=== PATIENT | female | born 1995 | race Caucasian/White ===

== ENCOUNTER 2017-03-21 11:47 | Emergency (ER) | payer OTHER ==
[2017-03-21 11:58] VITALS: BP 125/66; PULSE 69; RESP 16; TEMP 98.4; O2SAT 97
--- NOTE | 2017-03-21 12:05 | EDPHY ---
HPI/HX/ROS/PE/MDM Narrative: CHIEF COMPLAINT: Cough HPI: The patient is a 21-year-old female with no significant past medical history. She complains of a nonproductive cough that has been present for approximately 2 weeks. She denies fever. She denies hemoptysis. She states that she sometimes coughs so much that she throws up. She denies recent sick contacts. REVIEW OF SYSTEMS: Aside from elements discussed in the HPI, a comprehensive 10-point review of systems was reviewed and is negative. PMH: None significant. SOCIAL HISTORY: Single. Student. Nonsmoker. PHYSICAL EXAM: General:Patient is alert, in no acute distress. ENT:Eyes are normal to inspection. ENT inspection normal. Neck: Normal inspection. Full range of motion. Respiratory:No respiratory distress. Breath sounds normal bilaterally. Cardiovascular: Regular rate and rhythm. Strong peripheral pulses. Normal cap refill. Abdomen:The abdomen is nontender to palpation. There are no peritoneal signs. There are normal bowel sounds. Back: Normal to inspection. No tenderness to palpation. Skin: Normal color. No rash. Warm and dry. Extremities: Normal appearance. Full range of motion. Neuro: Oriented x3. Normal motor function. Normal sensory function. ED Course: Chest x-ray negative for pneumonia. MDM: This is a young healthy female who presents with what sounds like viral bronchitis. I will prescribe her to different cough suppressants. I do not think antibiotics are indicated. There is no evidence for pneumothorax, PE or pneumonia. - Data Points Imaging: I viewed and interpreted images myself General Time Seen by Provider: 03/21/17 11:56 Initial Vital Signs: Initial Vital Signs Temperature (C) 36.9 C 03/21/17 11:49 Heart Rate 69 03/21/17 11:49 Respiratory Rate 16 03/21/17 11:49 Blood Pressure 125/66 H 03/21/17 11:49 O2 Sat (%) 97 03/21/17 11:49 O2 Delivery Mode Room Air Allergies/Adverse Reactions: No Known Allergies Allergy (Verified 03/21/17 11:56) Home Medications: Medication Instructions Recorded Bcp 06/07/14 Departure - Departure Disposition: Home, Routine, Self-Care Clinical Impression: Acute bronchitis Condition: Good Instructions: Acute Bronchitis (ED) Additional Instructions: Follow-up with your primary doctor within 72 hours. Return to the Emergency Department for fever, chest pain, shortness of breath, increasing pain or other worsening of condition. Referrals: NONE *PRIMARY CARE P,. [Primary Care Provider] - As per Instructions
== END 2017-03-21 12:29 | disposition home or self-care (01) ==
LOC: CED 11:47
DX: J20.9 Acute bronchitis, unspecified (principal)
CPT/HCPCS: 71020-PO